=== PATIENT | male | born 1960 | race Caucasian/White ===

== ENCOUNTER 2019-08-03 21:04 | Emergency (ER) | payer SELFPAY ==
[~2019-08-03] VITALS: Ht 170.2 cm; Wt 79.6 kg
[~2019-08-03 21:04] MED LIST: ACYC800T PO; PRED20TA PO
[2019-08-03 21:51] VITALS: Ht 170.2 cm; Wt 79.6 kg
[2019-08-04] MEDS ORDERED: predniSONE 20 MG TAB PO ONE (01:30)
[2019-08-04] MEDS ORDERED: FLUORESCEIN STRIP BOTH EYES ONE (01:30)
[2019-08-04] MEDS ORDERED: ACYCLOVIR 800 MG TAB PO ONE (01:30)
[2019-08-04 03:20] VITALS: BP 134/86; PULSE 68; RESP 20
== END 2019-08-04 03:25 | disposition home or self-care (01) ==
LOC: E/R 21:04
DX: B02.9 Zoster without complications (principal)
CPT/HCPCS: 99283; J7512